=== PATIENT | female | born 1960 | race Hispanic/Latino ===

== ENCOUNTER 2019-05-10 07:48 | Day surgery (SDC) | payer OTHER ==
[2019-05-07 11:44] LABS: EOSINOPHILS % (AUTO) 2.5 % (0.0-8.0); HEMATOCRIT 42.5 % (36-48); LYMPHOCYTES % (AUTO) 25.7 % (21.0-51.0); MEAN CORPUSCULAR HEMOGLOBIN 28.7 pg (27.0-33.0); MEAN CORPUSCULAR HGB CONC 33.4 g/dL (32.0-36.0); MEAN CORPUSCULAR VOLUME 85.9 fL (79-99); MONOCYTES % (AUTO) 3.8 % (3.0-13.0); NEUTROPHILS % (AUTO) 66.5 % (40.0-77.0); PLATELET COUNT (AUTO) 225 K/uL (130-400); RED BLOOD CELL COUNT(AUTO) 4.95 MIL/uL (4.00-5.50); RED CELL DISTRIBUTION WIDTH 12.9 % (11.0-15.5); WHITE BLOOD COUNT (AUTO) 8.7 K/uL (4.8-10.8)
[2019-05-07 11:47] VITALS: BP 133/66
[2019-05-07 11:53] LABS: CREATININE 0.8 mg/dL (0.5-1.5); POTASSIUM 3.5 mmol/L (3.5-5.1)
[~2019-05-10] VITALS: Ht 157.5 cm; Wt 82.0 kg
[2019-05-10] VITALS (17 sets, daily range): BP systolic 107–136; BP diastolic 64–106
[~2019-05-10 07:48] MED LIST: ATOR20TA65 PO; DICL1KIT14 TP; HYDR25TA PO; MELA1TAB28 PO
--- NOTE | 2019-05-10 08:40 | NUR ---
POTENTIAL FOR INFECTION: NO SHAVING NEEDED TO LEFT LEG / LEFT KNEE ASSESSED PER JENNIFER MAYORGA MA. WIPED LEFT LEG / LEFT KNEE WITH JOSE: 2% CHLORHEXIDINE GLUCONATE CLOTH PATIENTS PRE-OP SKIN PREP PER JENNIFER MAYORGA MA.
[2019-05-10] MEDS ORDERED: LACTATED RINGERS 1000ML 1,000 ML IV ONE (08:54)
[2019-05-10] MEDS ORDERED: CLINDAMYCIN 900 MG/D5% WATER 50 ML IV ONE (08:54)
[2019-05-10] MEDS ORDERED: FENTANYL CITRATE PF 50 MCG/1 ML 2ML VIAL ONE ×2 (11:22→13:28)
[2019-05-10] MEDS ORDERED: LIDOCAINE PF 2% 5ML ABBOJECT ONE (11:22)
[2019-05-10] MEDS ORDERED: METOCLOPRAMIDE 10 MG/2 ML VIAL ONE (11:22)
[2019-05-10] MEDS ORDERED: PROPOFOL 10 MG/ML 20ML VIAL IV ONE (11:22)
[2019-05-10] MEDS ORDERED: ONDANSETRON HCL 4 MG/2 ML VIAL ONE (11:23)
[2019-05-10] MEDS ORDERED: BUPIVACAINE/EPI/PF 0.5% 30ML VIAL IJ ONE (12:56)
[2019-05-10] MEDS ORDERED: GENTAMICIN SULFATE 80 MG/2 ML VIAL ONE (12:56)
[2019-05-10] MEDS ORDERED: ACET1TAB12 PO (14:00)
[2019-05-10] MEDS ORDERED: CLIN300C3 PO (14:00)
[2019-05-10] MEDS ORDERED: ACETAMINOPHEN ELIXIR 650 MG/20.3 ML UDCUP PO SCH (15:30)
== END 2019-05-10 16:05 | disposition home or self-care (01) ==
LOC: DAH 07:48
PROVIDERS: ATTEND Orthopaedic Surgery
DX: M23.222 Derangement of posterior horn of medial meniscus due to old tear or injury, left knee (principal); I10 Essential (primary) hypertension; E78.5 Hyperlipidemia, unspecified; J45.909 Unspecified asthma, uncomplicated; Z88.8 Allergy status to other drugs, medicaments and biological substances; Z88.0 Allergy status to penicillin; Z88.2 Allergy status to sulfonamides; Z88.1 Allergy status to other antibiotic agents; Z79.1 Long term (current) use of non-steroidal anti-inflammatories (NSAID); Z79.899 Other long term (current) drug therapy; Z90.49 Acquired absence of other specified parts of digestive tract; Z98.890 Other specified postprocedural states; Z83.3 Family history of diabetes mellitus; Z80.3 Family history of malignant neoplasm of breast; Z82.49 Family history of ischemic heart disease and other diseases of the circulatory system
CPT/HCPCS: 29881; 36415; 80048; 85025; A4215; A4221; A4222; A4223; A4606; A4649; A4663; A4930; A5120; A6223; J1580; J2001; J2405; J2704; J2765; J3010 ×2; J3490 ×2; J7120

== ENCOUNTER → 2024-11-02 | Outpatient (CLI) | payer OTHER ==
[~2024-11-02] MED LIST changes: +ACET1TAB12 PO; +CLIN300C3 PO
--- NOTE | 2024-11-02 13:43 | HMCIMG ---
MR HIP RIGHT WO HISTORY: Right hip pain COMPARISON: None TECHNIQUE: MRI of the right. was performed utilizing multiple pulse sequences in axial, coronal and sagittal planes. Patient was not given contrast through intravenous route. FINDINGS: No abnormal signal intensity is seen of visualized bony structure. Right joint space narrowing is seen. No abnormal signal intensity is seen of the visualized musculature. No MR evidence of avascular necrosis, stress fracture or dislocation is seen. IMPRESSION: 1. Mild degenerative changes. No MR evidence of stress fracture, avascular necrosis or dislocation is seen.
== END | disposition home or self-care (01) ==
LOC: RAH 10:52
PROVIDERS: ATTEND Student in an Organized Health Care Education/Training Program
DX: M16.11 Unilateral primary osteoarthritis, right hip (principal); M25.851 Other specified joint disorders, right hip; M25.551 Pain in right hip
CPT/HCPCS: 73721